=== PATIENT | female | born 1985 | race Caucasian/White ===

== ENCOUNTER 2019-08-18 09:14 | Emergency (ER) | payer OTHER ==
[~2019-08-18] VITALS: Ht 154.9 cm; Wt 56.7 kg
[2019-08-18] MEDS ORDERED: OBSTETRIX DHA1 EACH (09:29)
== END 2019-08-18 14:03 | disposition home or self-care (01) ==
LOC: ER 09:14
DX: O20.0 Threatened abortion (principal); Z34.01 Encounter for supervision of normal first pregnancy, first trimester

== ENCOUNTER 2019-09-23 20:49 | Inpatient (IN) | payer OTHER ==
[~2019-09-23] VITALS: Ht 154.9 cm; Wt 59.0 kg
[~2019-09-23 20:49] MED LIST: OBSTETRIX DHA1 EACH
== END 2019-09-26 10:33 | disposition home or self-care (01) | DRG 833 ==
LOC: ER 20:49 → OB/GYN 22:54
PROVIDERS: ADMIT Obstetrics & Gynecology
DX: O23.31 Infections of other parts of urinary tract in pregnancy, first trimester (principal)

== ENCOUNTER 2019-12-09 09:48 | Outpatient (CLI) | payer OTHER | END 2019-12-09 11:13 | disposition home or self-care (01) | LOC: NST 09:48 | DX: Z34.82 Encounter for supervision of other normal pregnancy, second trimester (principal) ==

== ENCOUNTER 2020-01-14 07:47 | Inpatient (IN) | payer OTHER ==
[~2020-01-14] VITALS: Ht 154.9 cm; Wt 66.2 kg
[2020-01-14] MEDS ORDERED: PROMETRIUM200 MG PO (15:52)
== END 2020-01-17 11:19 | disposition home or self-care (01) | DRG 833 ==
LOC: OB/GYN 07:47
PROVIDERS: ADMIT Obstetrics & Gynecology
DX: O24.414 Gestational diabetes mellitus in pregnancy, insulin controlled (principal); Z3A.29 29 weeks gestation of pregnancy

== ENCOUNTER 2020-02-07 09:35 | Outpatient (CLI) | payer OTHER ==
[~2020-02-07 09:35] MED LIST changes: +PROMETRIUM200 MG PO
== END 2020-02-07 10:34 | disposition home or self-care (01) ==
LOC: NST 09:35
PROVIDERS: ATTEND Obstetrics & Gynecology Maternal & Fetal Medicine
DX: Z34.83 Encounter for supervision of other normal pregnancy, third trimester (principal)

== ENCOUNTER → 2020-02-21 | Outpatient (CLI) | payer OTHER ==
[~2020-02-21] MED LIST changes: +HUMULIN N100 UNIT/2; +HUMULIN N100 UNIT/2 SQ; +HUMULIN R500 UNIT/2
== END | disposition home or self-care (01) ==
LOC: NST 09:46
PROVIDERS: ATTEND Obstetrics & Gynecology Maternal & Fetal Medicine
DX: Z34.83 Encounter for supervision of other normal pregnancy, third trimester (principal)

== ENCOUNTER 2020-03-03 13:03 | Outpatient (CLI) | payer OTHER ==
[~2020-03-03 13:03] MED LIST changes: -HUMULIN N100 UNIT/2; -HUMULIN N100 UNIT/2 SQ; -HUMULIN R500 UNIT/2
== END 2020-03-03 13:29 | disposition home or self-care (01) ==
LOC: NST 13:03
PROVIDERS: ATTEND Obstetrics & Gynecology
DX: Z34.83 Encounter for supervision of other normal pregnancy, third trimester (principal)

== ENCOUNTER 2020-03-06 11:45 | Inpatient (IN) | payer OTHER ==
[~2020-03-06] VITALS: Ht 154.9 cm; Wt 71.7 kg
[2020-03-16] MEDS ORDERED: HUMULIN N100 UNIT/2 SQ (07:24)
[2020-03-16] MEDS ORDERED: HUMULIN N100 UNIT/2 (07:25)
[2020-03-16] MEDS ORDERED: HUMULIN R500 UNIT/2 ×3 (07:25→07:27)
== END 2020-03-18 15:25 | disposition home or self-care (01) | DRG 807 ==
LOC: SURG-SUITE 03-16 06:15 → LDR 03-16 06:15 → SURG-SUITE 03-16 18:34 → OB/GYN 03-27 11:45 → LDR 03-27 11:45
PROVIDERS: ADMIT Obstetrics & Gynecology Maternal & Fetal Medicine; ATTEND Obstetrics & Gynecology Maternal & Fetal Medicine
PROC: 10E0XZZ Delivery of Products of Conception, External Approach (ICD-10-PCS; principal; 2020-03-16)
PROC: 0HQ9XZZ Repair Perineum Skin, External Approach (ICD-10-PCS; 2020-03-16)
PROC: 4A1HXFZ Monitoring of Products of Conception, Cardiac Rhythm, External Approach (ICD-10-PCS; 2020-03-16)
PROC: 3E033VJ Introduction of Other Hormone into Peripheral Vein, Percutaneous Approach (ICD-10-PCS; 2020-03-16)
DX: O24.429 Gestational diabetes mellitus in childbirth, unspecified control (principal); Z37.0 Single live birth; Z3A.38 38 weeks gestation of pregnancy; O70.0 First degree perineal laceration during delivery

== ENCOUNTER 2020-03-12 08:08 | Outpatient (CLI) | payer OTHER | END 2020-03-12 09:12 | disposition home or self-care (01) | LOC: NST 08:08 | PROVIDERS: ATTEND Obstetrics & Gynecology | DX: Z34.83 Encounter for supervision of other normal pregnancy, third trimester (principal) ==